=== PATIENT | male | born 1975 | race Two or more races ===

== ENCOUNTER 2022-09-17 15:05 | Emergency (ER) | payer OTHER ==
[~2022-09-17] VITALS: Ht 175.3 cm; Wt 126.6 kg
[~2022-09-17 15:05] MED LIST: COZAAR25 MG PO; GLIPIZIDE XL10 MG PO; METFORMIN HCL1000 M2 PO; SIMVASTATIN5 MG PO; TRAMADOL HCL50 MG PO; ZOLOFT25 MG PO
== END 2022-09-17 17:55 | disposition home or self-care (01) ==
LOC: ER 15:05
DX: K13.79 Other lesions of oral mucosa (principal)